=== PATIENT | female | born 2005 | race Caucasian/White ===

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

== ENCOUNTER 2025-01-09 12:08 | Emergency (ER) | payer BC, SELFPAY ==
[2025-01-09 12:13] VITALS: BP 108/75; PULSE 85; RESP 18; TEMP 36.8; O2SAT 98
--- NOTE | 2025-01-09 12:21 | ED.GENADULT ---
HPI - General Adult General Chief complaint: Extremity Problem,Nontraumatic Stated complaint: Right Hand Pain/Swelling Time Seen by Provider: 01/09/25 12:22 Source: patient Mode of arrival: ambulatory Limitations: no limitations History of Present Illness HPI narrative: 19-year-old female presents with complaint of redness, pain and joint swelling to right hand. patient has been seen by hand specialist and diagnosed with Raynaud's and arthritis. Her to rheumatology. Unable to get through to rheumatology office to schedule appointment. Patient here today because she states pain to right hand is worse. Dad concerned that she has infection. Has taken cephalexin in the past for current symptoms and did not help. All systems reviewed and negative except as noted above. Related Data Allergies Allergy/AdvReac Type Severity Reaction Status Date / Time No Known Allergies Allergy Mild Verified 12/30/24 16:22 Review of Systems Review of Systems: CONSTITUTIONAL: Denies fever, chills, or sweats. EYES: Denies visual changes, redness, or discharge. ENT: Denies rhinorrhea, congestion, sore throat, or otalgia. CARDIOVASCULAR: Denies chest pain, palpitations, or edema. RESPIRATORY: Denies cough or dyspnea. GASTROINTESTINAL: Denies abdominal pain, nausea, vomiting, or diarrhea. GENITOURINARY: Denies dysuria or hematuria. SKIN: Denies rash or itching. Reports pain, redness, swelling to right hand MUSCULOSKELETAL: Denies back pain, joint pain, or myalgia. NEUROLOGIC: Denies headache, numbness, or weakness. PSYCHIATRIC: Denies anxiety or depression. All other systems reviewed are negative, except as documented in HPI. [facility] Surgical History Surgical History (Updated 05/29/24 @ 12:55 by Raiza White) [place] teeth extracted Family History Family History (Updated 05/29/24 @ 12:56 by Raiza White) Mother Asthma Diabetes mellitus Father Diabetes mellitus Sibling Asthma Social History Social History (Updated 05/29/24 @ 12:57 by Raiza White) Smoking status: Never smoker Alcohol intake: never Substance use: never Do You Feel Safe in your Home?: Yes Lack of Transportation: No Lack of Food: Never True Current Housing: I Have Housing Concerned About Future Housing: No Difficulty Paying Gas/Electric Bills: No Difficulty Paying for Meds: No Currently Unemployed: No Education: High School Diploma/GED Difficulty w/ Childcare or Family Care: No Living arrangements: with family Comments At time of signature, agree with nursing past medical, surgical, social and family history. There is no relevant family history pertinent to the presenting complaint. Exam Narrative: GENERAL: This is a well-nourished, well-developed patient, in no apparent distress. HEAD: normocephalic, atraumatic. EYES: PERRL. Sclera clear/white. Vision is grossly intact. EARS: External ears normal NOSE: External nose normal NECK: Neck supple, non-tender without lymphadenopathy, masses or thyromegaly. CARDIOVASCULAR: Regular rate and rhythm without murmurs, gallops, or rubs. RESPIRATORY: Clear to auscultation. Breath sounds equal bilaterally. No wheezes, rales, or rhonchi. SKIN: warm, Dry, intact with no suspicious lesions or rash, good texture and turgor. NEURO: awake, alert, and oriented to person, place and time. There were no obvious focal neurologic abnormalities. EXTREMITIES: No joint tenderness, effusion, or edema noted. Course Course Level of Care: Express Care Visit Vital Signs Vital signs: Vital Signs Temperature 36.8 C 01/09/25 12:13 Pulse Rate 85 01/09/25 12:13 Respiratory Rate 18 01/09/25 12:13 Blood Pressure 108/75 01/09/25 12:13 Pulse Oximetry 98 01/09/25 12:13 Oxygen Delivery Room Air 01/09/25 12:13 Temperature 36.8 C 01/09/25 12:13 Pulse Rate 85 01/09/25 12:13 Respiratory Rate 18 01/09/25 12:13 Blood Pressure 108/75 01/09/25 12:13 Pulse Oximetry 98 01/09/25 12:13 Oxygen Delivery Room Air 01/09/25 12:13 reviewed Medical Decision Making MDM Narrative Medical decision making narrative: patient patient has been seen by hand specialist for current symptoms and referred to rheumatology. rheumatology office is in same building as [facility]. Recommend patient stop at office window and schedule appointment. Due to already being seen by specialist for current symptoms so I am not prescribing any medications for treatment today. In the past she has already tried cephalexin to for symptoms and no improvement. Please be advised this is a medical document. It is intended for choy-ru-owfh communication. It is written in medical language and may contain unfamiliar abbreviations or verbiage. Medical documents are intended to carry relevant information, facts as evident, and the clinical opinion of the practitioner at the time of the encounter. This report may have been done utilizing a voice recognition system. Attempts have been made to correct errors. However, there may be uncorrected grammatical, spelling, and recognition errors present. The file time of this note does not necessarily represent the time of service. Vital Signs Vital Signs: Vital Signs Temperature 36.8 C 01/09/25 12:13 Pulse Rate 85 01/09/25 12:13 Respiratory Rate 18 01/09/25 12:13 Blood Pressure 108/75 01/09/25 12:13 Pulse Oximetry 98 01/09/25 12:13 Oxygen Delivery Room Air 01/09/25 12:13 Temperature 36.8 C 01/09/25 12:13 Pulse Rate 85 01/09/25 12:13 Respiratory Rate 18 01/09/25 12:13 Blood Pressure 108/75 01/09/25 12:13 Pulse Oximetry 98 01/09/25 12:13 Oxygen Delivery Room Air 01/09/25 12:13 Discharge Plan Discharge Clinical Impression: Raynaud's disease without gangrene Patient Disposition: Home, Self-Care Condition: Stable Instructions: Antibiotic Form Additional Instructions: Follow up with youth minister at next available appointment. Patient Language: Solomon Islander Prescriptions: No Action norethindrone ac-eth estradiol [11/24 (21)] 1-20 mg-mcg tablet 1 tablet PO DAILY Qty: 90 0RF Follow-up/Referrals: Wendi Mariscal DO [Primary Care Provider] - Time of Disposition: 12:39
--- OUTSIDE RECORDS SUMMARY | 2025-01-09 12:42 | XMS_ITS | Clinical Summary ---
Author Organization [facility] Address [address] [place] [address] Care Team Providers Care Flight Engineer Inspector Name Role Phone Dejah Jiang MD Primary Care Provider [phone] Deb Delacruz MD Unavailable [phone] Source Comments [facility],non-owned Affiliates and Associated Physician Practices is amultiple site organization consisting of ambulatory clinics and hospital sitesin [place], [place], [place] and [place]. This disclosure is being madepursuant to the Care Everywhere program and may not contain all information available regarding this patient. Last updated 18.[facility] Allergies No known active allergies Medications * Be aware that medications may not be up to date on this document. Alwaysverify current medications with the patient. Medication Sig Dispensed Refills Start Date End Date Status multivitamin daily tablet Take 1 tablet by mouth daily with food Active Docusate Sodium (STOOL SOFTENER LAXATIVE PO) Active vitamin D3 (CHOLECALCIFEROL) 25 MCG (1000 UNITS) tablet Take by mouth once daily Active bisacodyl EC (DULCOLAX) 5 MG tablet Take 2 tablets by mouth as needed for Constipation 5 tablet 1 02/02/2020 Active polyethylene glycol 3350 (MIRALAX) 17 g packet Take by mouth once daily Active hyoscyamine 0.125 MG tablet Take 1 tablet by mouth every 4 hours as needed for Spasms 50 tablet 5 11/08/2020 Active dicyclomine (BENTYL) 10 MG capsuleIndications :Abdominal pain, generalized Take 1 (one) capsule by mouth 3 times daily as needed 10 capsule 1 01/17/2021 Active cyproheptadine (PERIACTIN) 4 MG tablet Take 2 (two) tablets by mouth at bedtime 180 tablet 4 10/24/2021 Active Immunizations Name Administration Dates Next Due INFLUENZA VACCINE 09/19/2020 Social History Tobacco Use Types Packs/Day Years Used Date Smoking Tobacco: Never Smokeless Tobacco: Never Sex and Gender Information Value Date Recorded Sex Assigned at Not on file Gender Identity Not on file Sexual Orientation Not on file Last Filed Vital Signs Vital Sign Reading Time Taken Comments Blood Pressure 102/58 10/24/2021 3:06 PM SAFETY ASSISTANT Pulse - - Temperature - - Respiratory Rate - - Oxygen Saturation - - Inhaled Oxygen Concentration - - Weight 51.5 kg (113 lb 9.6 oz) 10/24/2021 3:06 P M SAFETY ASSISTANT Height 160.8 cm (5' 3.31 ) 10/24/2021 3:06 PM CS T Body Mass Index 19.93 10/24/2021 3:06 PM SAFETY ASSISTANT Body Mass Index Percentile 39.08% 10/24/2021 3:0 6 PM SAFETY ASSISTANT Growth Chart: CDC (Girls, 2- 20 Years) Plan of Treatment Health Maintenance Due Date Last Done Comments HIV SCREENING 2020 HPV VACCINE (1 - 3-dose series) 2020 CHLAMYDIA/GONORRHEA SCREENING 2021 MENINGOCOCCAL (Group B) VACC INE (1 of 2 - Standard) 2021 HEPATITIS C SCREENING 03/03/2023 DTAP/TDAP/TD VACCINES (1 - Tdap) 2024 HEPATITIS B VACCINE (1 of 3 - 19+ 3-dose series) 2024 COVID-19 VACCINE (1 - 2023-2 5 season) 2024 INFLUENZA VACCINE (#1) 2024 09/19/2020 DEPRESSION SCREENING 11/05/2024 ZOSTER VACCINE (1 of 2) 2055 HIB VACCINE Aged Out No longer eligi ble based on patient's age to complete this topic MENINGOCOCCAL VACCINE Aged Out No chance glo eligible based on patient's age to complete this topic PNEUMOCOCCAL VACCINE Aged Out No long er eligible based on patient's age to complete this topic Care Teams Flight Engineer Inspector Relationship Specialty Start Date End Date Dejah Jiang MD [address] [facility] [address] [place] [address] PCP - General Pediatrics 12/29/19 Deb Delacruz MD [address] [place] [address] Director Internal Communications Pediatric Gastroenterology 06/21/20
--- OUTSIDE RECORDS SUMMARY | 2025-01-09 12:42 | XMS_ITS | Encounter Summary ---
Author Organization [facility] Address [address] [facility] [place] [address] Care Team Providers Care Oceanic Sciences Professor Name Role Phone Dejah Jiang MD Primary Care Provider [phone] Deb Delacruz MD Unavailable [phone] Encounter Details Date Type Department Care Team (Late st Contact Info) Description 03/28/2022 Telephone [facility] - GI [address] [facility] [place] [address] Pari Cunningham RN Social History Tobacco Use Types Packs/Day Years Used Date Smoking Tobacco: Never Smokeless Tobacco: Never Sex and Gender Information Value Date Recorded Sex Assigned at Not on file Gender Identity Not on file Sexual Orientation Not on file documented as of this encounter Miscellaneous Notes * Telephone Encounter - Pari Cunningham RN - 03/29/2022 8:39 AM CDT Left message on unidentified Voice Mail for mother to check her Mychart In response to her phone message. * Telephone Encounter - Pari Cunningham RN - 03/28/2022 1:50 PM CDT Mother ( Fatuma) called and reported child just got some lab results back with a low Ferritin Level. 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 Mother wanting to know of a good OTC Iron pill that does not cause constipation? Child is patient of Dr. Delacruz. documented in this encounter Plan of Treatment Not on file documented as of this encounter Visit Diagnoses Not on filedocumented in this encounter Care Teams Oceanic Sciences Professor Relationship Specialty [place] [address] [place] [id number] PCP - General Pediatrics 12/29/19 Deb Delacruz MD [facility] [place] [address] Recreation Instructor Pediatric Gastroenterology 06/21/20 documented as of this encounter
--- OUTSIDE RECORDS SUMMARY | 2025-01-09 12:42 | XMS_ITS | Referral Summary ---
Author Organization [facility] Address [address] [facility] [place] [address] Care Team Providers Care Business Area Director Name Role Phone Dejah Jiang MD Primary Care Provider [phone] Deb Delacruz MD Unavailable [phone] Source Comments [facility],non-owned Affiliates and Associated Physician Practices is amultiple site organization consisting of ambulatory clinics and hospital sitesin [place], [place], [place] and [place]. This disclosure is being madepursuant to the Care Everywhere program and may not contain all information available regarding this patient. Last updated 18.[facility] Allergies No known active allergies Medications [...] Comments Blood Pressure 102/58 10/24/2021 3:06 PM HOMICIDE INVESTIGATOR Pulse - - Temperature - - Respiratory Rate - - Oxygen Saturation - - Inhaled Oxygen Concentration - - Weight 51.5 kg (113 lb 9.6 oz) 10/24/2021 3:06 P M HOMICIDE INVESTIGATOR Height 160.8 cm (5' 3.31 ) 10/24/2021 3:06 PM CS T Body Mass Index 19.93 10/24/2021 3:06 PM HOMICIDE INVESTIGATOR Body Mass Index Percentile 39.08% 10/24/2021 3:0 6 PM HOMICIDE INVESTIGATOR Growth Chart: [facility] (Girls, 2- 20 Years) Plan of Treatment Not on file Care Teams Business Area Director Relationship Specialty Start Date End Date Dejah Jiang MD [address] [address] PCP - General Pediatrics 12/29/19 Deb Delacruz MD [address] [place] [address] Molder Foam Rubber Pediatric Gastroenterology 06/21/20
--- OUTSIDE RECORDS SUMMARY | 2025-01-09 12:42 | XMS_ITS | Clinical Summary ---
Author Organization [facility] Address [address] [place] [address] Care Team Providers Care Apricot Packer Name Role Phone Dejah Jiang MD Primary Care Provider + Allergies No known active allergies Medications amitriptyline (ELAVIL) 10 mg tablet Take 10 mg by mouth nightly 10/05/2020 Active cholecalciferol (VITAMIN D-3) 25 mcg (1,000 unit) tablet Take by mouth daily Active cyproheptadine (PERIACTIN) 4 mg tablet Take 8 mg by mouth nightly 09/20/2020 Active triamcinolone (KENALOG) 0.1 % ointment 07/26/2020 Active polyethylene glycol (MIRALAX) 17 gram/dose powder Take by mouth daily Active hyoscyamine (LEVSIN) 0.125 mg tablet Take 0.125 mg by mouth every 4 (four) hours as needed 11/08/2020 Active dicyclomine (BENTYL) 10 mg capsule Take 10 mg by mouth 3 (three) times a day as needed 01/17/2021 Active Active Problems Problem Noted Date Diagnosed Date Pain of left lower leg 12/03/2019 Pain of right lower leg 12/03/2019 Acute pain of left knee 11/26/2019 Acute pain of right knee 11/26/2019 Surgical History Surgery Date Site/Laterality Comments MYRINGOTOMY W/ TUBES Medical History Medical History Date Comments Asthma IBS (irritable bowel syndrome) Family History Medical History Relation Name Comments No Known Problems Father Diabetes Mother Relation Name Status Comments Father Mother Social History Tobacco Use Types Packs/Day Years Used Date Smoking Tobacco: Never Smokeless Tobacco: Never Tobacco Cessation:Counseling Given: Not Answered Alcohol Use Standard Drinks/Week Comments Never 0 (1 standard drink = 0.6 oz pur e alcohol) AUDIT-C Answer Date Recorded Frequency of Alcohol Consumption Never 11/27/2019 Average Number of Drinks Not on file 020 Frequency of Binge Drinking Not on file 11/06 Personal Safety Answer Date Recorded Getting School Help Needed Not on file 01/18 Comments Unknown Sex and Gender Information Value Date Recorded Sex Assigned at Not on file Legal Sex Female 6:12 PM HEAD CUSTODIAN Gender Identity Not on file Sexual Orientation Not on file Occupation Industry Job Start Date Job End Date student Not on file Not on file Not on file Obstetrics History Growth Chart Information Age Height Weight Avtcii-bij-cdam th Percentile BMI Percentile Head Circum Head Circum Percentile Date 17 years 161.3 cm (5' 3.5 ) 52.6 kg (116 lb) 36.35%* 2022 16 years 160 cm (5' 3 ) 49.9 kg (110 lb) 34.73%* 2020 16 years 160 cm (5' 3 ) 49.9 kg (110 lb) 35.14%* 2020 15 years 160 cm (5' 3 ) 45.4 kg (100 lb) 15.30%* 2019 14 years 160 cm (5' 3 ) 47.6 kg (105 lb) 33.60%* 2019 * [facility] (Girls, 2-20 Years) Last Filed Vital Signs Vital Sign Reading Time Taken Comments Blood Pressure - - Pulse - - Temperature 37.1 C (98.7 F) 10/12/2020 2:56 PM HEAD CUSTODIAN Respiratory Rate - - Oxygen Saturation - - Inhaled Oxygen Concentration - - Weight 52.6 kg (116 lb) 02/09/2023 12:33 PM CDT Height 161.3 cm (5' 3.5 ) 02/09/2023 12:33 PM CD T Body Mass Index 20.23 02/09/2023 12:33 PM CDT Body Mass Index Percentile 36.35% 02/09/2023 12: 33 PM CDT Growth Chart: [facility] (Girls, 2- 20 Years) Plan of Treatment Health Maintenance Due Date Last Done Comments Depression Screening 2005 Hepatitis C Screening 2005 Meningococcal B Vaccine (1 of 2 - Standard) 2021 Regular Well Visit/Exam 18-64 2023 Covid-19 Vaccine ( season) 2024 06/30/2021, 06/08/2021 Influenza Vaccine (#1) 2024 09/19/2020, 2016 DTaP/Tdap/Td Vaccine (7 - Td or Tdap) 05/26/2026 05/26/2016, 06/17/2010, 07/02/2006, Additional history exists Hepatitis B Screening Completed 2005 , 2005, 2005 Pneumococcal vaccine <65 Aged Out 005, 2005, 2005 No longer eligible based on patient's age to complete this topic Varicella Vaccines Completed 06/17/2010, 04/04/2006 HPV Vaccines Completed 07/17/2019, 07/06/2017 Meningococcal Vaccine Completed 08/16/2021, 016 Insurance [employer] ACCESS CHOICE [employer] ACCESS CHOICE [employer] ACCESS CHOICE ANTHEM ACCESS CHOICE Care Teams Apricot Packer Relationship Specialty Start Date End Date Dejah Jiang MD [address] [place] [address] PCP - General Pediatrics 12/08/19
--- OUTSIDE RECORDS SUMMARY | 2025-01-09 12:42 | XMS_ITS | Referral Summary ---
Author Organization [facility] Address [address] [place] [address] Care Team Providers Care Automotive Service Technician Name Role Phone Dejah Jiang MD Primary [...] 11/26/2019 Acute pain of right knee 11/26/2019 Social History Tobacco Use Types Packs/Day Years [...] on file Legal Sex Female 6:12 PM STAINED GLASS INSTALLER Gender Identity Not on file Sexual Orientation Not on file Occupation Industry Job Start Date Job End Date student Not on file Not on file Not on file Last Filed Vital Signs Vital Sign Reading Time Taken Comments Blood Pressure - - Pulse - - Temperature 37.1 C (98.7 F) 10/12/2020 2:56 PM STAINED GLASS INSTALLER Respiratory Rate - - Oxygen Saturation - - Inhaled Oxygen Concentration - - Weight 52.6 kg (116 lb) 02/09/2023 12:33 PM CDT Height 161.3 cm (5' 3.5 ) 02/09/2023 12:33 PM CD T Body Mass Index 20.23 02/09/2023 12:33 PM CDT Body Mass Index Percentile 36.35% 02/09/2023 12: 33 PM CDT Growth Chart: [facility] (Girls, 2- 20 Years) Plan of Treatment Not on file Insurance [facility] [employer] ACCESS CHOICE Member Subscriber Plan / Payer (Ef fective 2019-Present) Name:Kate Moreno Relation to Subscriber:Child Name:ZEESHAN MORENO Date of :1973 (Home) Address: [address] [place] [address] Payer ID:[id number] (NAIC) Type:[employer] Address: [address] [place] [address] [employer] ACCESS CHOICE Member Subscriber Plan / Payer (Ef fective 2019-Present) Name:Kate Moreno Relation to Subscriber:Child Name:ZEESHAN MORENO Date of :1973 (Home) Address: [address] [place] [address] Payer ID:[id number] (NAIC) Type:[employer] Address: [place] [address] [employer] ACCESS CHOICE Member Subscriber Plan / Payer (Ef fective 2019-Present) Name:Kate Moreno Relation to Subscriber:Child Name:ZEESHAN MORENO Date of :1973 (Home) Address: [address] [place] [address] Payer ID:[id number] (NAIC) Type:[employer] Address: [address] [place] [address] [employer] ACCESS CHOICE Member Subscriber Plan / Payer (Ef fective 2019-Present) Name:Kate Moreno Relation to Subscriber:Child Name:GARTHZEESHAN Date of :1973 (Home) Address: [address] [place] [address] Payer ID:[id number] (NAIC) Type:[employer] Address: [address] [place] [address] Care Teams Automotive Service Technician Relationship Specialty Start Date End Date Dejah Jiang MD [address] [place] [address] PCP - General Pediatrics 12/08/19
--- OUTSIDE RECORDS SUMMARY | 2025-01-09 12:42 | XMS_ITS | Patient Health Summary ---
Author Organization [facility] Address [address] [place] [address] Care Team Providers Care Deputy Chief Magistrate Name Role Phone Dejah Jiang MD Primary Care Provider [phone] Deb Delacruz MD Unavailable [phone] Note from [facility],non-owned Affiliates and Associated Physician Practices is amultiple site organization consisting of ambulatory clinics and hospital sitesin [place], [place]. This disclosure is being madepursuant to the Care Everywhere program and may not contain all information available regarding this patient. Last updated 18.[facility] Allergies No known active allergies Medications * Be aware that medications may not be up to date on this document. Alwaysverify current medications with the patient. * multivitamin daily tablet Take 1 tablet by mouth daily with food * Docusate Sodium (STOOL SOFTENER LAXATIVE PO) * vitamin D3 (CHOLECALCIFEROL) 25 MCG (1000 UNITS) tablet Take by mouth once daily * bisacodyl EC (DULCOLAX) 5 MG tablet(Started 02/02/2020) Take 2 tablets by mouth as needed for Constipation 1 refill by 02/01/2021 * polyethylene glycol 3350 (MIRALAX) 17 g packet Take by mouth once daily * hyoscyamine 0.125 MG tablet(Started 11/08/2020) Take 1 tablet by mouth every 4 hours as needed for Spasms 5 refills by 11/08/2021 * dicyclomine (BENTYL) 10 MG capsule(Started 01/17/2021) Take 1 (one) capsule by mouth 3 times daily as needed 1 refill by 01/17/2022 * cyproheptadine (PERIACTIN) 4 MG tablet(Started 10/24/2021) Take 2 (two) tablets by mouth at bedtime 4 refills by 10/24/2022 Immunizations * INFLUENZA VACCINE(Given 09/19/2020) Social History Tobacco Use Types Packs/Day Years Used Date Smoking Tobacco: Never Smokeless Tobacco: Never Sex and Gender Information Value Date Recorded Sex Assigned at Not on file Gender Identity Not on file Sexual Orientation Not on file Last Filed Vital Signs Vital Sign Reading Time Taken Comments Blood Pressure 102/58 10/24/2021 3:06 PM [employer] Pulse - - Temperature - - Respiratory Rate - - Oxygen Saturation - - Inhaled Oxygen Concentration - - Weight 51.5 kg (113 lb 9.6 oz) 10/24/2021 3:06 P M [employer] Height 160.8 cm (5' 3.31 ) 10/24/2021 3:06 PM CS T Body Mass Index 19.93 10/24/2021 3:06 PM [employer] Body Mass Index Percentile 39.08% 10/24/2021 3:0 6 PM [employer]SULTANT Growth Chart: CDC (Girls, 2- 20 Years) Procedures * CARDIAC EKG ORDER(Performed 06/10/2020) * CALPROTECTIN FECAL(Performed 04/26/2020) * TSH(Performed 04/26/2020) Performed for Abdominal pain, unspecified abdominal location, Weight loss * XR ABD OBSTRUCTION SERIES 2VW(Performed 04/04/2020) Performed for Constipation, unspecified constipation type * XR ABDOMEN KUB(Performed 02/02/2020) Performed for Constipation, unspecified constipation type Results * CARDIAC EKG ORDER (06/10/2020 8:26 PM CDT) Narrative 06/10/2020 8:26 PM CDT Ordered by an unspecified provider. Scanned Document CARDIAC SERVICES ORD ERABLES * (ABNORMAL) CALPROTECTIN FECAL (04/26/2020 4:46 PM CDT) Calprotectin Fecal 129(H) 0 - 120 ug/g [facility] INSURANCE BILL Comment: Concentration Interpretation Follow-Up <16 - 50 ug/g Normal None >50 -120 ug/g Borderline Re-evaluate in 4-6 weeks >120 ug/g Abnormal Repeat as clinically indicated 04/26/2020 4:46 PM CDT 04/26/2020 Narrative [facility] INSURANCE BILL - 04/30/2020 5:08 PM CDT A courtesy copy of this report has been sent to the patient, Resulting Agency Comment Lab Testing performed at: [email or web address] [address] [id number] Clare Luna MD LAB - BODY FLUID OR DERABLES Performing Organization Address City/[facility]/ZIP Co de Phone Number [facility] INSURANCE BILL [address] [place] [address] * TSH (04/26/2020 3:54 PM CDT) TSH 1.120 0.450 - 4.500 uIU/mL [facility] INSURANCE BILL Blood BLOOD SPECIMEN / Unknown 04/26/2020 3:54 PM CDT 04/26/2020 Narrative Resulting Agency Comment Lab Testing performed at: [email or web address] [place] [address] [facility] [id number] Deb Delacruz MD LAB - CHEMISTRY KENNETH REY Performing Organization Address [facility]/ZIP Co de Phone Number [facility] INSURANCE BILL [address] [place] [address] * XR ABD OBST SERIES (2 VIEW ABD) (04/04/2020 12:38 PM CDT) Anatomical Region Laterality Modality Abdomen Radiographic Reena ging 04/04/2020 12:4 2 PM CDT Impressions 04/04/2020 12:46 PM CDT Nonobstructive bowel gas pattern. Moderate colonic stool with 3 round Sitz markers noted within the left lower pelvis. *Reading Radiologist: Francisca Cameron on 04/04/2020 at 12:46 PM Narrative 04/04/2020 12:46 PM CDT INDICATION: Sitzmarks study COMPARISON: None available. TECHNIQUE: Supine frontal and upright radiographs of the abdomen. FINDINGS: Moderate colonic stool load is present. There are 3 round radiopaque Sitz markers noted within the left lower pelvis. There are no findings to suggest bowel obstruction, free intraperitoneal gas or pneumatosis. No abnormal calcifications are seen. No bone abnormality is seen. The lower chest is normal. Procedure Note Francisca Cameron DO - 04/04/2020 INDICATION: Sitzmarks study COMPARISON: None available. TECHNIQUE: Supine frontal and upright radiographs of the abdomen. FINDINGS: Moderate colonic stool load is present. There are 3 round radiopaque Sitz markers noted within the left lower pelvis. There are no findings to suggest bowel obstruction, free intraperitoneal gas or pneumatosis. No abnormal calcifications are seen. No bone abnormality is seen. The lower chest is normal. IMPRESSION Nonobstructive bowel gas pattern. Moderate colonic stool with 3 round Sitz markers noted within the left lower pelvis. *Reading Radiologist: Francisca Cameron on 04/04/2020 at 12:46 PM Deb Delacruz MD DIAGNOSTIC IMAGING O RDERABLES * XR ABDOMEN 1 VW (02/02/2020 3:02 PM CDT) Anatomical Region Laterality Modality Abdomen Radiographic Reena ging 02/02/2020 5:14 PM CDT Impressions 02/02/2020 5:17 PM CDT Mild prominence of solid stool throughout the colon. Otherwise normal examination >>Reading Radiologist: ZEESHAN DOBSON MD on 02/02/2020 at 5:17 PM Narrative 02/02/2020 5:17 PM CDT EXAMINATION: XR ABD KUB HISTORY: Constipation, unspecified TECHNIQUE: AP supine image(s) of the abdomen and pelvis. COMPARISON: None FINDINGS: The bowel gas pattern is normal. There are no imaging signs of a bowel obstruction or ileus. The appearance of the stomach is unremarkable. There is mild prominence of solid stool throughout the colon. The solid abdominal organs are normal in appearance. There is no evidence of a soft tissue mass or abnormal fluid collection in the abdomen or pelvis. No calculi are evident in the biliary or urinary systems. Other. No acute osseous abnormalities are evident. Procedure Note Zeeshan Dobson MD - 02/02/2020 EXAMINATION: XR ABD KUB HISTORY: Constipation, unspecified TECHNIQUE: AP supine image(s) of the abdomen and pelvis. COMPARISON: None FINDINGS: The bowel gas pattern is normal. There are no imaging signs of a bowel obstruction or ileus. The appearance of the stomach is unremarkable. There is mild prominence of solid stool throughout the colon. The solid abdominal organs are normal in appearance. There is no evidence of a soft tissue mass or abnormal fluid collection in the abdomen or pelvis. No calculi are evident in the biliary or urinary systems. Other. No acute osseous abnormalities are evident. IMPRESSION Mild prominence of solid stool throughout the colon. Otherwise normal examination >>Reading Radiologist: ZEESHAN DOBSON MD on 02/02/2020 at 5:17 PM Deb Delacruz MD DIAGNOSTIC IMAGING O [facility] Care Teams Deputy Chief Magistrate Relationship Specialty [place] [address] [place] [address] [address] [place] [address] PCP - General Pediatrics 12/29/19 Deb Delacruz MD [address] [place] [id number] Water Team Leader Pediatric Gastroenterology 06/21/20
== END 2025-01-09 12:44 | disposition home or self-care (01) ==
PROVIDERS: Emergency Provider Nurse Practitioner Family; PCP Family Medicine
DX: I73.00 Raynaud's syndrome without gangrene (principal); Z79.899 Other long term (current) drug therapy
CPT/HCPCS: 99211; G0463

== ENCOUNTER 2025-04-13 13:26 | Outpatient (CLI) | payer BC, SELFPAY ==
--- NOTE | ~2025-04-13 | XR_ITS ---
XR hip BI wo pelvis 04/13/2025 13:39 Indication: Bilateral hip pain Procedure: 2 views each hip Comparison: No prior studies for comparison. Findings: No joint space narrowing. There is anatomic alignment. No fracture, subluxation or dislocat ion. No significant soft tissue abnormality. No foreign bodies. Impression: 1: No significant bone or joint abnormality. Reviewed, dictated and finalized at location B. Impression: 1: No significant bone or joint abnormality.
== END 2025-04-13 13:27 | disposition home or self-care (01) ==
PROVIDERS: PCP Family Medicine; Visit Provider Family Medicine
DX: M25.552 Pain in left hip (principal); M25.551 Pain in right hip
CPT/HCPCS: 73521